=== PATIENT | male | born 1965 | race Caucasian/White ===

== ENCOUNTER 2021-12-26 10:42 | Emergency (ER) | payer OTHER, SELFPAY ==
[2021-12-26 10:52] VITALS: BP 156/96; PULSE 98; RESP 18; TEMP 36.7; O2SAT 100
--- NOTE | 2021-12-26 11:15 | ED.MALEGU ---
HPI - Male Genitourinary General Chief complaint: Urogenital-Male Stated complaint: Urinary Problem Time Seen by Provider: 12/26/21 11:15 Source: patient and RN notes reviewed Mode of arrival: ambulatory Limitations: no limitations History of Present Illness HPI Narrative: 56 year old male presents to [facility] care with complaints of urinary burning, frequency, and discomfort in penis and also some dribbling for the last 2 weeks which patient states is getting worse since Wednesday.. Patient states history of previous prostatitis with similar symptoms denies any rectal pain or any back pain, denies any fevers chills or sweats. Denies any concern for STDs or any testicular pain or swelling. MD Complaint: dysuria and other (Penile discomfort and urinary drip) Onset (ago): week(s) (2) Duration: progressively worsening Location: penis Associated symptoms: Reports dysuria and other (penis discomfort and urinary dribbling) Related Data Sexually active: Yes Home Medications Medication Instructions Recorded Confirmed losartan 100 mg PO DAILY 12/26/21 12/26/21 Allergies Allergy/AdvReac Type Severity Reaction Status Date / Time No Known Allergies Allergy Verified 12/26/21 11:20 Review of Systems Review of Systems: CONSTITUTIONAL: Denies fever, chills, or sweats. EYES: Denies visual changes, redness, or discharge. ENT: Denies rhinorrhea, congestion, sore throat, or otalgia. CARDIOVASCULAR: Denies chest pain, palpitations, or edema. RESPIRATORY: Denies cough or dyspnea. GASTROINTESTINAL: Denies abdominal pain, nausea, vomiting, or diarrhea. GENITOURINARY: positive for dysuria frequency and penis discomfort, no hematuria. SKIN: Denies rash or itching. MUSCULOSKELETAL: Denies back pain, joint pain, or myalgia. NEUROLOGIC: Denies headache, numbness, or weakness. PSYCHIATRIC: Denies anxiety or depression. All systems reviewed & are unremarkable except as noted in HPI and below PMFSH Past Medical History Medical History (Updated 12/27/21 @ 10:54 by Laura Garcia NP) History of varicocele surgical repair Hypertension Prostatitis Urinary tract infection Social History Social History (Updated 12/26/21 @ 11:20 by Laura Garcia NP) Smoking status: Never smoker Comments At time of signature, agree with nursing past medical, surgical, social and family history. There is no relevant family history pertinent to the presenting complaint Exam Narrative: GENERAL: Well-appearing, well-nourished, and in no acute distress. HEAD: Normocephalic, atraumatic. EYES: PERRLA and EOMI. ENT: Nares clear, no rhinorrhea or epistaxis. Mucous membranes moist. NECK: Supple.no lymphadenopathy CHEST: Clear to auscultation. No respiratory distress.SAO2 100% on room air HEART: Regular rate and rhythm. No murmur heard. Normal peripheral pulses. ABDOMEN: Soft, nontender, nondistended, normal active bowel sounds.No suprapubic pain or any CVA tenderness on examination, penis discomfort with urinary burning and frequency, no testicular pain or swelling present, no rectal pain or any back pain or any CVA tenderness on examination. No penis drainage or lesions. EXTREMITIES: Normal range of motion. No edema. SKIN: Warm, dry, no rash. NEURO: No focal deficits. Alert and oriented x3. Course Course Level of Care: Express Care Visit Vital Signs Vital signs: Vital Signs Temperature 36.7 C 12/26/21 10:52 Pulse Rate 98 12/26/21 10:52 Respiratory Rate 18 12/26/21 10:52 Blood Pressure 156/96 H 12/26/21 10:52 Pulse Oximetry 100 12/26/21 10:52 Temperature 36.7 C 12/26/21 10:52 Pulse Rate 98 12/26/21 10:52 Respiratory Rate 18 12/26/21 10:52 Blood Pressure 156/96 H 12/26/21 10:52 Pulse Oximetry 100 12/26/21 10:52 MDM - Male Genitourinary Differential Diagnosis Differential diagnosis: Likely urinary tract infection, urethritis and prostatitis Medical Records Attestation: I reviewed the patient's medical records. Rea
== END 2021-12-26 12:00 | disposition home or self-care (01) ==
PROVIDERS: Emergency Provider Registered Nurse
DX: N41.9 Inflammatory disease of prostate, unspecified (principal); I10 Essential (primary) hypertension
CPT/HCPCS: 81003; 99213; G0463